=== PATIENT | female | born 1945 | race Caucasian/White ===

== ENCOUNTER → 2017-09-23 | Outpatient (CLI) | payer MEDICARE ==
[~2017-09-23] MED LIST: ADJUSTABLE COMM1 MIS; ALPR0.25 PO; ASPI81 PO; ATOR40TA16 PO; DICL-86 PO; DICL75TA PO; DIOV80TA2 PO; ESCI20TA PO; FISH1000 PO; HYDR-3580 PO; LEVO50TA4 PO; LEXA20TA PO; LORTA5 PO; LOSA100T2 PO; LYSI1000 PO; MULT-65 PO; NEXI40CA PO; ROSU10 PO; TAB-TAB PO; TRAZ100T10 PO; VITA10002 PO; VITA100022 PO; VITA200C3 PO; VITA500C18 PO; VITA500L4 PO; WALKER WHEELS/F1 MIS; XARE10TA PO; l-lysine PO
== END ==
LOC: CPRE 11:21
PROVIDERS: ATTEND Orthopaedic Surgery Orthopaedic Surgery of the Spine
DX: Z00.00 Encounter for general adult medical examination without abnormal findings (principal)

== ENCOUNTER 2017-09-27 05:26 | Inpatient (IN) | payer MEDICARE ==
[~2017-09-27] VITALS: Ht 154.9 cm; Wt 71.6 kg
[~2017-09-27 05:26] MED LIST changes: -ADJUSTABLE COMM1 MIS; -ASPI81 PO; -DICL-86 PO; -DIOV80TA2 PO; -FISH1000 PO; -HYDR-3580 PO; -LEXA20TA PO; -LORTA5 PO; -ROSU10 PO; -TAB-TAB PO; -TRAZ100T10 PO; +TRAZ100T6 PO; -VITA10002 PO; -VITA500L4 PO; -WALKER WHEELS/F1 MIS; -XARE10TA PO; -l-lysine PO
[2017-09-27] MEDS ORDERED: INSULIN HUMAN REGULAR 1,000 UNITS/10 ML VIAL SQ PRN (06:00)
[2017-09-27] MEDS ORDERED: TRANEXAMIC ACID INJ 720 MG in SODIUM CHLORIDE 0.9% INJ 100 ML IV SCH (06:00)
[2017-09-27] MEDS ORDERED: CHLORHEXIDINE GLUCONATE 2 % 1 PACK (2 CLOTHS) TOPICAL PRN (06:00)
[2017-09-27] MEDS ORDERED: VANCOMYCIN 1000 MG/NS 250 ML (for <70 kg) IV SCH ×2 (06:00)
[2017-09-27] MEDS ORDERED: EXPAREL PERI-ARTICULAR INJECTION (TOTAL VOL. 60 ML) P-ARTICULR SCH ×2 (06:00)
[2017-09-27] MEDS ORDERED: CLINDAMYCIN 900 MG/NS 100 ML IV SCH ×2 (06:00)
[2017-09-27] MEDS ORDERED: POVIDONE IODINE 5% (ANTISEPSIS KIT) 4 APPLICATIONS EACH NARE PRN (06:00)
[2017-09-27] MEDS ORDERED: POVIDONE IODINE 7.5% SCRUB 118 ML BOTTLE TOPICAL SCH (06:00)
[2017-09-27] MEDS ORDERED: SODIUM CHLORID 0.9% 500 ML IV PRN (06:00)
[2017-09-27] MEDS ORDERED: METOPROLOL TARTRATE 25 MG TAB PO PRN (06:00)
[2017-09-27] MEDS ORDERED: LACTATED RINGER'S 1000 ML IV PRN (06:00)
[2017-09-27] MEDS ORDERED: GENTAMICIN SULFATE 80 MG/2 ML VIAL ONE (06:15)
[2017-09-27] MEDS ORDERED: ceFAZolin 2 GM PREMIX 50 ML ONE (07:17)
[2017-09-27] MEDS ORDERED: MORPHINE SULFATE 8 MG/ML INJ IM PRN (09:15)
[2017-09-27] MEDS ORDERED: SODIUM CHLORIDE 0.9% FLUSH 5 ML FLUSH IVF PRN (09:15)
[2017-09-27] MEDS ORDERED: Post-op Orders (for Pharmacy) MISC XX ONE (09:15)
[2017-09-27] MEDS ORDERED: NALOXONE HCL 0.4 MG/ML AMP IV PUSH PRN (09:15)
[2017-09-27] MEDS ORDERED: MISCELLANEOUS NURSING INFORMATION XX PRN (09:15)
[2017-09-27] MEDS ORDERED: ACETAMINOPHEN/HYDROcodone 325 MG/7.5 MG TAB PO PRN (09:15)
[2017-09-27] MEDS ORDERED: MORPHINE SULFATE 30 MG/30 ML PCA IV SCH (09:15)
[2017-09-27] MEDS ORDERED: MISCELLANEOUS PHARMACY INFORMATION XX ONE (09:15)
--- NOTE | 2017-09-27 09:17 | PD.OP ---
cc: Chris Swanson MD Operative Report Date of Surgery: Sep 27, 2017 Preoperative Diagnosis: Avascular necrosis left hip Postoperative Diagnosis: Same Procedure: Left total hip replacement arthroplasty, direct anterior exposure Anesthesia: Gen. Surgeon: Chris Swansno Powerhouse Mechanic Apprentice(s): HIPOLITO Horne Operation and Findings: EBL: 350 cc INDICATION: This patient presents with significant hip pain related to avascular necrosis and with what appears to be severe inflammatory changes with collapse of the femoral head.. Despite extensive conservative care this patient continues to be painful and now presents for surgical treatment. NOTE: Nikki Horne PA-C was present for the entire surgical procedure as my assistant child care teacher. In my medical opinion her skill and care was necessary for the proper management of this patient. COMPONENTS: COMPANY: [employer] CUP: [place], 50 mm, sector, gription surface LINER: Altrx 32, neutral STEM: [place], size 10, standard offset, hydroxyapatite-coated HEAD: 32, +1, /14 taper PROCEDURE: This patient was brought to the operating room and anesthetized in the supine position and positioned on the fracture table with both legs held extended. The left hip and leg was scrubbed with alcohol followed by Hibiclens followed by ChloraPrep and draped sterilely. Antibiotics were given within routine time window and a timeout was done. A 4 inch incision was made starting 2 cm distal and 2 cm lateral to the anterior superior iliac spine. The fascia hao was opened longitudinally. The interval between the fascia hao and the rectus was opened down to the capsule of the hip joint. Retractors were positioned allowing good visualization of the capsule. This was opened longitudinally and flaps were created. Stay sutures were utilized. Exposure was excellent. The neck was cut at the proper location using fluoroscopy as a guide. The head was removed. Deep retractors were positioned allowing good visualization of the acetabulum. Acetabulum was deepened down to the floor starting with a proper size reamer and reaming up to 49 mm. A trial was utilized. Fluoroscopy was used to check position and confirmed satisfactory alignment. The rim was reamed with a 50 mm reamer and the final cup was positioned in approximately 20 of anteversion and 40-45 of abduction. Position was satisfactory. A single hole eliminator was positioned. A single dome screw was positioned followed by the final liner. The lifting hook was utilized. The leg was dropped to the floor, maximally externally rotated and brought across the midline. Retractors were positioned. A box osteotome was utilized followed by progressive broaching to the proper stem size. Trial reduction showed excellent alignment and fit. With 60 of external rotation the leg was dropped to the floor without evidence of anterior subluxation. The wound was irrigated. The final stem was inserted and was found to be very stable. The final reduction using the final head. Stability was as previously noted. Intraoperative x-rays were taken. The wound was irrigated copiously. Hemostasis was controlled. Local anesthesia was utilized. The capsule was repaired with #2 Tycron sutures. The fascia hao was repaired with running 0 PDS on a loop. Subcutaneous tissue was approximated with 2-0 Vicryl and skin with running intradermal 3-0 Vicryl followed by Steri-Strips. A sterile dressing was applied. The patient was awakened and taken to the recovery room in satisfactory condition. FINDINGS: There was collapse of the femoral head. This had the appearance of avascular necrosis on top of severe inflammatory changes. There was no comp location. Alignment appeared satisfactory. Stability appeared excellent. Chris Swanson MD Sep 27, 2017 09:17
[2017-09-27] MEDS ORDERED: XARE10TA PO (09:20)
[2017-09-27] MEDS ORDERED: HYDR-3580 PO (09:20)
--- NOTE | 2017-09-27 09:46 | RADRPT ---
EXAM DATE/TIME: 09/27/2017 08:06 [facility] COMPARISON: No previous studies available for comparison. INDICATIONS : Left total hip replacement. MEDICAL HISTORY : None. SURGICAL HISTORY : None. ENCOUNTER: Initial ACUITY: 1 day PAIN SCORE: Non-responsive. LOCATION: Left Hip FINDINGS: Tubes as recorded digitally operating room using C-arm after placement of total hip arthroplasty, no ncemented with supra-acetabular screw. CONCLUSION: Intraoperative images. Doug Barakat MD on September 27, 2017 at 9:43 Board Certified Radiologist. This report was verified electronically.
[2017-09-27] MEDS ORDERED: DO NOT ADM ANY ANTICOAGULANT DRUGS PRN (09:52)
[2017-09-27] MEDS ORDERED: *morphine SULFATE 8 MG/ML PERIprocedure ONLY ONE ×2 (09:54→10:09)
[2017-09-27] MEDS: LACTATED RINGER'S 1000 ML INJ 1,000 ML IV SCH ×2 (10:20→20:41)
[2017-09-27] MEDS ORDERED: ALPRAZolam 0.25 MG TAB PO PRN (10:30)
[2017-09-27 11:40] VITALS: BP 114/60; PULSE 58; RESP 17; TEMP 96.8; O2SAT 99
[2017-09-27] MEDS: PCA - TOTAL MG MORPHINE DELIVERED PER SHIFT SCH ×2 (14:00→20:39)
[2017-09-27 15:31] VITALS: BP 103/50; PULSE 62; RESP 17; TEMP 96.3; O2SAT 94
[2017-09-27 16:00] VITALS: O2SAT 93
[2017-09-27 19:44] VITALS: BP 125/64; PULSE 64; RESP 16; TEMP 98.3; O2SAT 95
[2017-09-27] MEDS: ATORVASTATIN 40 MG TAB PO SCH (20:32)
[2017-09-27] MEDS: MAGNESIUM HYDROXIDE SUSP 30 ML CUP PO SCH (20:32)
[2017-09-27] MEDS: SENNOSIDES 8.6 MG TAB PO SCH (20:33)
[2017-09-27] MEDS: traZODone HCL 100 MG TAB PO SCH (20:33)
[2017-09-27] MEDS: SODIUM CHLORIDE 0.9% FLUSH 5 ML FLUSH IVF SCH (20:41)
[2017-09-28 00:52] VITALS: BP 136/69; PULSE 66; RESP 17; TEMP 97.8; O2SAT 99
[2017-09-28 04:02] VITALS: BP 140/73; PULSE 69; RESP 17; TEMP 97.8; O2SAT 99
[2017-09-28] MEDS: PCA - TOTAL MG MORPHINE DELIVERED PER SHIFT SCH (04:44)
[2017-09-28] MEDS: LEVOTHYROXINE SODIUM 50 MCG TAB PO SCH (04:44)
[2017-09-28 07:16] LABS: HEMATOCRIT 26.8 % (35.0-46.0); HEMOGLOBIN 9.3 GM/DL (11.6-15.3)
[2017-09-28 08:00] VITALS: BP 151/68; PULSE 83; RESP 17; TEMP 99.8; O2SAT 96
[2017-09-28] MEDS ORDERED: NON-FORMULARY DRUG (Losartan-Hydrochlorothiazide 1 TAB) PO SCH (09:00)
[2017-09-28] MEDS: SODIUM CHLORIDE 0.9% FLUSH 5 ML FLUSH IVF SCH ×2 (09:00→20:12)
[2017-09-28] MEDS: HYDROCHLOROTHIAZIDE 25 MG TAB PO SCH (09:43)
[2017-09-28] MEDS: RIVAROXABAN 10 MG TAB PO SCH (09:43)
[2017-09-28] MEDS: PANTOPRAZOLE SOD 40 MG DELAYED RELEASE TAB PO SCH (09:43)
[2017-09-28] MEDS: LOSARTAN 50 MG TAB PO SCH (09:43)
[2017-09-28] MEDS: ESCITALOPRAM OXALATE 20 MG TAB PO SCH (09:43)
[2017-09-28] MEDS: MAGNESIUM HYDROXIDE SUSP 30 ML CUP PO SCH ×2 (09:43→20:12)
[2017-09-28] MEDS: LACTATED RINGER'S 1000 ML INJ 1,000 ML IV SCH ×2 (09:48→20:12)
[2017-09-28] MEDS: ACETAMINOPHEN/HYDROcodone 325 MG/7.5 MG TAB PO PRN ×2 (11:33→23:03)
[2017-09-28 12:00] VITALS: BP 124/58; PULSE 88; RESP 17; TEMP 98.9; O2SAT 98
--- NOTE | 2017-09-28 13:24 | HHI.FF ---
Face to Face Verification Diagnosis: (1) Osteoarthritis of left hip (2) Avascular necrosis of bone of left hip Physical Therapy Gait training, Safety evaluation, Transfer training, bed to chair Hip: Total hip, Protocol: Left, Progress to weight bearing Additional Instructions PT 4 days/wk for 2 weeks. WBAT LLE. Anterior heriberto precautions. Walker for gait training. Nursing RN Days per Week: 2 x Week(s): 1 Dressing Changes: Do not change dressing Additional Instructions Vitals assessment. Dressing assessment - do not change unless saturated. I have seen patient Macy Reid on 09/28/17. My clinical findings support the need for the requested home health care services because: Limited ability to care for self High risk of falls I certify that my clinical findings support that this patient is homebound because: Post-op weakness Unsteady gait/balance Ashley Downs Sep 28, 2017 13:24
[2017-09-28] MEDS ORDERED: WALKER WHEELS/F1 MIS (13:25)
[2017-09-28] MEDS ORDERED: ADJUSTABLE COMM1 MIS (13:25)
--- NOTE | 2017-09-28 13:28 | PD.ORT.PN ---
Subjective Subjective Remarks Doing well now. Was struggling with lightheadedness earlier this morning. Some thigh pain to knee and slightly below. She denies any chest pain or SOB. Questions about discharge and physical therapy. Objective Vitals Vital Signs Date Time Temp Pulse Resp B/P (MAP) Pulse Ox O2 Delivery O2 Flow Rate FiO2 09/28/17 08:00 99.8 83 17 151/68 (95) 96 09/28/17 04:44 16 09/28/17 04:02 97.8 69 17 140/73 (95) 99 09/28/17 00:52 97.8 66 17 136/69 (91) 99 09/27/17 20:39 16 09/27/17 19:44 98.3 64 16 125/64 (84) 95 09/27/17 16:00 93 Nasal Cannula 2.00 09/27/17 15:31 96.3 62 17 103/50 (67) 94 09/27/17 14:00 16 I/O 09/27/17 09/27/17 09/27/17 09/28/17 09/28/17 09/28/17 07:00 15:00 23:00 07:00 15:00 23:00 Intake Total 900 ml 1267 ml 1000 ml Output Total 3675 ml 400 ml 800 ml Balance -2775 ml 867 ml 200 ml Intake Oral 480 ml 360 ml IV Total 900 ml 787 ml 640 ml Output Urine Total 325 ml 400 ml 800 ml Estimated Blood Loss 350 ml Other 3000 ml # Bowel Movements 0 0 Result Diagram: 09/28/17 0630 Objective Remarks Sitting up in chair at bedside NAD VSS LLE Anterior hip dressing c/d/i, mild warmth and swelling, no erythema thigh supple, neg homans distal +motor at, +sens, +nvi Assessment & Plan Ortho Post Op Day #: 1 Problem List: Assessment and Plan pod#1 s/p L HARJINDER, anterior Ortho stable. VICE PRESIDENT QUALITY ASSURANCE dc'd. PO pain meds as needed. Mild postop anemia. PT - WBAT LLE. Anterior harjinder protocol. Xarelto 10mg qd. Hold dressing changes unless saturated. D/C planning, likely C tomorrow. Ashley Downs Sep 28, 2017 13:28
[2017-09-28 16:00] VITALS: BP 114/84; PULSE 84; RESP 17; TEMP 98.9; O2SAT 96
[2017-09-28] MEDS: traZODone HCL 100 MG TAB PO SCH (20:11)
[2017-09-28] MEDS: ATORVASTATIN 40 MG TAB PO SCH (20:11)
[2017-09-28] MEDS: SENNOSIDES 8.6 MG TAB PO SCH (20:12)
[2017-09-28 21:00] VITALS: BP 107/52; PULSE 90; RESP 20; TEMP 98.1; O2SAT 97
[2017-09-29 00:52] VITALS: BP 118/66; PULSE 83; RESP 20; TEMP 99.5; O2SAT 97
[2017-09-29] MEDS: LEVOTHYROXINE SODIUM 50 MCG TAB PO SCH (04:40)
[2017-09-29 08:33] VITALS: BP 151/78; PULSE 61; RESP 18; TEMP 99; O2SAT 97
--- NOTE | 2017-09-29 08:40 | HHI.DCPOC ---
Discharge Care Plan Diagnosis: (1) Osteoarthritis of left hip (2) Avascular necrosis of bone of left hip Your Health Problems Are: Incision/Drains Swelling Goals to Promote Your Health * To prevent worsening of your condition and complications * To maintain your health at the optimal level Directions to Meet Your Goals Take your medications as prescribed Follow your dietary instruction Follow activity as directed Keep your appointments as scheduled Take your immunizations and boosters as scheduled If your symptoms worsen call your PCP, if no PCP go to Urgent Care Center or Emergency Room Smoking is Dangerous to Your Health. Avoid second hand smoke Call the 24-hour hour crisis hotline for domestic abuse at Ashley Downs Sep 29, 2017 08:40
--- NOTE | 2017-09-29 08:40 | HHI.DCPOC ---
Discharge Care Plan Diagnosis: (1) Osteoarthritis of left hip (2) Avascular necrosis of bone of left hip Your Health Problems Are: Incision/Drains Swelling Goals to Promote Your Health * To prevent worsening of your condition and complications * To maintain your health at the optimal level Directions to Meet Your Goals Take your medications as prescribed Follow your dietary instruction Follow activity as directed Keep your appointments as scheduled Take your immunizations and boosters as scheduled If your symptoms worsen call your PCP, if no PCP go to Urgent Care Center or Emergency Room Smoking is Dangerous to Your Health. Avoid second hand smoke Call the 24-hour hour crisis hotline for domestic abuse at Ashley Downs Sep 29, 2017 08:40
--- NOTE | 2017-09-29 08:40 | HHI.DCPOC ---
Discharge Care Plan Diagnosis: (1) Osteoarthritis of left hip (2) Avascular necrosis of bone of left hip Your Health Problems Are: Incision/Drains Swelling Goals to Promote Your Health * To prevent worsening of your condition and complications * To maintain your health at the optimal level Directions to Meet Your Goals Take your medications as prescribed Follow your dietary instruction Follow activity as directed Keep your appointments as scheduled Take your immunizations and boosters as scheduled If your symptoms worsen call your PCP, if no PCP go to Urgent Care Center or Emergency Room Smoking is Dangerous to Your Health. Avoid second hand smoke Call the 24-hour hour crisis hotline for domestic abuse at Ashley Downs Sep 29, 2017 08:40
--- NOTE | 2017-09-29 08:41 | HHI.DS ---
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 She initially sought out treatment with her PCP who placed her on a medrol dose pack and tramadol and encouraged activity restriction. Her symptoms quickly escalated over the course of 7-8 weeks. She sought out orthopaedic care. Imaging studies were performed showing advanced osteoarthritis with AVN. Surgical treatment was recommended in the form of left total hip arthroplasty and she elected to move forward. She now presents for the above. CBC/BMP: 09/28/17 0630 Significant Findings Laboratory Tests Test 09/28/17 06:30 Hemoglobin 9.3 GM/DL (11.6-15.3) Hematocrit 26.8 % (35.0-46.0) PE at Discharge Sitting up in chair at bedside NAD VSS LLE Anterior hip dressing c/d/i, mild warmth and swelling, no erythema thigh supple, neg homans distal +motor at, +sens, +nvi Hospital Course Surgical treatment was performed on the day of admission without complication. She recovered well in PACU and was transferred to the orthopaedic floor. Pain was controlled with IV and oral medications. DVT prophylaxis was initiated pod# 1 using xarelto. Shee was compliant with physical therapy and all restrictions despite struggling with orthostatic hypotension day 1. After 3 days she was found to be stable and discharged home with home health care with instruction to continue physical therapy for her hip, pursue a high fiber diet, and continue her pain medication as needed in addition to her anticoagulant. She was given prescriptions for norco 7.5mg and xarelto 10mg. Pt Condition on Discharge: Stable Discharge Disposition: Disch w/ Home Health Serv Discharge Instructions Diet Instructions: As Tolerated, No Restrictions, High Fiber Diet Activities You Can Perform: Weight Bearing as Madeline Activities to Avoid: Strenuous Activity Additional Activity Instruc.: anterior heriberto procotol New Medications: Adjustable Commode 3-in-1 (Adjustable Commode 3-in-1) 1 Mis Mis EA .ROUTE DIRECTED, #1 Walker with Front Wheels (Walker with Front Wheels) 1 Mis Mis EA .ROUTE DIRECTED, #1 0 Refills Hydrocodone-Acetaminophen (Hydrocodone-Acetaminophen) 7.5-325 mg Tab 1 TAB PO Q4H PRN for PAIN, #50 TAB Rivaroxaban (Xarelto) 10 Mg Tab 10 MG PO Q24H for Prevent Blood Clot, #25 TAB Continued Medications: Alprazolam (Alprazolam) 0.25 Mg Tab 0.25 MG PO Q6H PRN for ANXIETY, TAB 0 Refills Ascorbic Acid ER (Vitamin C Sr) 500 Mg Caper 500 MG PO DAILY for Nutritional Supplement, CAP 0 Refills Atorvastatin (Atorvastatin) 40 Mg Tab 40 MG PO HS for Cholesterol Management, #30 TAB 0 Refills Cyanocobalamin ER (Vitamin B-12 ER) 1,000 Mcg Tab 1000 MCG PO DAILY for Nutritional Supplement, #1 BOTTLE 0 Refills Escitalopram (Escitalopram) 20 Mg Tab 20 MG PO DAILY, #30 TAB [address] (Nexium) 40 Mg Capdr 40 MG PO DAILY, CAP 0 Refills Levothyroxine (Levothyroxine) 50 Mcg Tab 50 MCG PO DAILY for Thyroid, #30 TAB 0 Refills Losartan-Hydrochlorothiazide (Losartan-Hydrochlorothiazide) 100-25 Mg Tab 1 TAB PO DAILY for Blood Pressure Management, #30 TAB 0 Refills Lysine HCl (Lysine) 1,000 Mg Tab 1000 MG PO DAILY Multiple Vitamin (Multi-Vitamin Daily) 1 Tab Tab 1 TAB PO DAILY for Nutritional Supplement, TAB 0 Refills Trazodone (Trazodone) 100 Mg Tablet 100 MG PO HS for Control Depression, #30 TAB 0 Refills Vitamin E (Vitamin E) 200 Unit Cap 400 UNITS PO DAILY for Nutritional Supplement, CAP 0 Refills Discontinued Medications: Diclofenac Sodium DR (Diclofenac Sodium DR) 75 Mg Tabdr 75 MG PO BID, #60 TAB 0 Refills Ashley Downs Sep 29, 2017 08:41
--- NOTE | 2017-09-29 08:43 | PD.ORT.PN ---
Subjective Subjective Remarks She feels as though she is improving. She has less lightheadedness. Her hip and thigh pain is improving. She questions using her norco versus just taking tylenol. She denies any chest pain or SOB. Questions about discharge and physical therapy. Objective Vitals Vital Signs Date Time Temp Pulse Resp B/P (MAP) Pulse Ox O2 Delivery O2 Flow Rate FiO2 09/29/17 08:33 99.0 61 18 151/78 (102) 97 09/29/17 00:52 99.5 83 20 118/66 (83) 97 09/28/17 21:00 98.1 90 20 107/52 (70) 97 09/28/17 16:00 98.9 84 17 114/84 (94) 96 09/28/17 12:00 98.9 88 17 124/58 (80) 98 I/O 09/28/17 09/28/17 09/28/17 09/29/17 09/29/17 09/29/17 07:00 15:00 23:00 07:00 15:00 23:00 Intake Total 1000 ml 600 ml 360 ml Output Total 800 ml 1000 ml Balance 200 ml 600 ml -640 ml Intake Oral 360 ml 600 ml 360 ml IV Total 640 ml Output Urine Total 800 ml 1000 ml # Voids 2 # Bowel Movements 0 0 Result Diagram: 09/28/17 0630 Procedures Left total hip arthroplasty, direct anterior approach Objective Remarks Sitting up in chair at bedside NAD VSS LLE Anterior hip dressing c/d/i, mild warmth and swelling, no erythema thigh supple, neg homans distal +motor at, +sens, +nvi Assessment & Plan Ortho Post Op Day #: 2 Problem List: (1) Osteoarthritis of left hip ICD Codes: M16.12 - Unilateral primary osteoarthritis, left hip Qualifiers: Qualified Codes: M16.12 - Unilateral primary osteoarthritis, left hip (2) Avascular necrosis of bone of left hip ICD Codes: 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 PO pain meds as needed. She can take 500mg tylenol OTC if norco is too strong. Mild postop anemia. PT - WBAT LLE. Anterior harjinder protocol. Xarelto 10mg qd. Hold dressing changes unless saturated. Ok to d/c home w [facility] after PT today. F2F written. Ashley Downs Sep 29, 2017 08:43
[2017-09-29] MEDS: ESCITALOPRAM OXALATE 20 MG TAB PO SCH (10:18)
[2017-09-29] MEDS: RIVAROXABAN 10 MG TAB PO SCH (10:18)
[2017-09-29] MEDS: HYDROCHLOROTHIAZIDE 25 MG TAB PO SCH (10:18)
[2017-09-29] MEDS: LOSARTAN 50 MG TAB PO SCH (10:18)
[2017-09-29] MEDS: PANTOPRAZOLE SOD 40 MG DELAYED RELEASE TAB PO SCH (10:18)
[2017-09-29] MEDS: SODIUM CHLORIDE 0.9% FLUSH 5 ML FLUSH IVF SCH ×2 (10:19→19:51)
[2017-09-29] MEDS: ACETAMINOPHEN/HYDROcodone 325 MG/7.5 MG TAB PO PRN ×2 (10:19→18:25)
[2017-09-29] MEDS: MAGNESIUM HYDROXIDE SUSP 30 ML CUP PO SCH ×2 (10:19→19:51)
[2017-09-29] MEDS: LACTATED RINGER'S 1000 ML INJ 1,000 ML IV SCH ×2 (11:11→19:52)
[2017-09-29 12:01] VITALS: BP 118/64; PULSE 88; RESP 18; TEMP 100.4; O2SAT 96
[2017-09-29 16:13] VITALS: BP_SYST 112; BP_SYST 118; BP_DIAS 64; BP_DIAS 66; PULSE 88; PULSE 91; RESP 18; TEMP 100.1; TEMP 100.4; O2SAT 100; O2SAT 96
[2017-09-29] MEDS: ATORVASTATIN 40 MG TAB PO SCH (19:51)
[2017-09-29] MEDS: traZODone HCL 100 MG TAB PO SCH (19:51)
[2017-09-29] MEDS: SENNOSIDES 8.6 MG TAB PO SCH (19:52)
[2017-09-29 20:00] VITALS: BP 114/53; PULSE 82; RESP 16; TEMP 99.6; O2SAT 95
[2017-09-30] VITALS: BP 121/58; PULSE 86; RESP 19; TEMP 97.7; O2SAT 96
[2017-09-30] MEDS: LEVOTHYROXINE SODIUM 50 MCG TAB PO SCH (05:45)
[2017-09-30] MEDS: ACETAMINOPHEN/HYDROcodone 325 MG/7.5 MG TAB PO PRN ×2 (05:49→10:17)
[2017-09-30 05:51] VITALS: TEMP 99
[2017-09-30 07:20] LABS: HEMATOCRIT 23.8 % (35.0-46.0); HEMOGLOBIN 8.5 GM/DL (11.6-15.3)
--- NOTE | 2017-09-30 07:34 | PD.ORT.PN ---
Subjective Subjective Remarks She ended up staying one more night. She states she feels good this morning. She is motivated to go home today. She denies any chest pain or SOB. Requests bedside commode for home use. Objective Vitals Vital Signs Date Time Temp Pulse Resp B/P (MAP) Pulse Ox O2 Delivery O2 Flow Rate FiO2 09/30/17 05:51 99.0 09/30/17 00:00 97.7 86 19 121/58 (79) 96 09/29/17 20:00 99.6 82 16 114/53 (73) 95 09/29/17 16:13 100.1 91 18 112/66 (81) 100 09/29/17 12:01 100.4 88 18 118/64 (82) 96 09/29/17 08:33 99.0 61 18 151/78 (102) 97 I/O 09/29/17 09/29/17 09/29/17 09/30/17 09/30/17 09/30/17 07:00 15:00 23:00 07:00 15:00 23:00 Intake Total 360 ml 480 ml Output Total 1000 ml Balance -640 ml 480 ml Intake Oral 360 ml 480 ml Output Urine Total 1000 ml # Voids 3 2 Result Diagram: 09/30/17 0627 Procedures Left total hip arthroplasty, direct anterior approach Objective Remarks Laying in bed, at bedside NAD VSS LLE Anterior hip dressing c/d/i, mild warmth and swelling, no erythema thigh supple, neg homans distal +motor at, +sens, +nvi Assessment & Plan Ortho Post Op Day #: 3 Problem List: (1) Osteoarthritis of left hip ICD Codes: M16.12 - Unilateral primary osteoarthritis, left hip Qualifiers: Qualified Codes: M16.12 - Unilateral primary osteoarthritis, left hip (2) Avascular necrosis of bone of left hip ICD Codes: 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 Mild low grade fevers yesterday. Ok to d/c home today after PT. PO pain meds as needed. She can take 500mg tylenol OTC if norco is too strong. Mild postop anemia. PT - WBAT LLE. Anterior harjinder protocol. Xarelto 10mg qd. Hold dressing changes unless saturated. F2F written. Commflorentino and walker written. Ashley Downs Sep 30, 2017 07:33
[2017-09-30 08:00] VITALS: BP 121/59; PULSE 93; RESP 17; TEMP 98.9; O2SAT 98
[2017-09-30] MEDS: PANTOPRAZOLE SOD 40 MG DELAYED RELEASE TAB PO SCH (08:45)
[2017-09-30] MEDS: LOSARTAN 50 MG TAB PO SCH (08:45)
[2017-09-30] MEDS: HYDROCHLOROTHIAZIDE 25 MG TAB PO SCH (08:45)
[2017-09-30] MEDS: RIVAROXABAN 10 MG TAB PO SCH (08:45)
[2017-09-30] MEDS: ESCITALOPRAM OXALATE 20 MG TAB PO SCH (08:46)
[2017-09-30] MEDS: MAGNESIUM HYDROXIDE SUSP 30 ML CUP PO SCH (08:47)
[2017-09-30] MEDS: SODIUM CHLORIDE 0.9% FLUSH 5 ML FLUSH IVF SCH (08:49)
== END 2017-09-30 11:28 | disposition home health service (06) | DRG 470 ==
LOC: HSDI 05:26 → N06A 11:29
PROVIDERS: ADMIT Orthopaedic Surgery Orthopaedic Surgery of the Spine; ATTEND Orthopaedic Surgery Orthopaedic Surgery of the Spine
PROC: 0SRB0JA Replacement of Left Hip Joint with Synthetic Substitute, Uncemented, Open Approach (ICD-10-PCS; principal; 2017-09-27 07:58)
DX: M16.12 Unilateral primary osteoarthritis, left hip (principal); M87.052 Idiopathic aseptic necrosis of left femur; I95.1 Orthostatic hypotension; R50.9 Fever, unspecified; D64.9 Anemia, unspecified; R42 Dizziness and giddiness
CPT/HCPCS: 73502; 76000; 85014; 85018; 86850; 86900; 86901; 86920; 94150; C9290; J0690; J1580; J2270; J3370; J7050; J7120